=== PATIENT | male | born 1970 | race Caucasian/White ===

== ENCOUNTER 2016-03-30 15:41 | Emergency (ER) | payer BC ==
[2016-03-30 16:34] LABS: Hematocrit 46 % (42-52); Hemoglobin 16.1 g/dl (14.0-18.0); Mean Corpuscular HGB Conc 35 g/dl (31-36); Mean Corpuscular Hemoglobin 31 pg (27-31); Mean Corpuscular Volume 89 fL (80-94); Mean Platelet Volume 8 um3 (7.4-10.4); Red Blood Count 5.17 10^6/ul (4.0-5.4); Red Cell Distribution Width 13 % (10.5-15); White Blood Count 10.4 10^3/ul (3.5-10.8)
[2016-03-30 16:44] LABS: Urine Bacteria Absent (Absent); Urine Bilirubin Negative (Negative); Urine Glucose Negative (Negative); Urine Nitrite Negative (Negative)
[2016-03-30 16:59] LABS: TSH (Thyroid Stimulating Horm) 1.14 mcIU/mL (0.34-5.60)
[2016-03-30 17:01] LABS: ALT 20 U/L (7-52); AST 20 U/L (13-39); Albumin 4.6 g/dL (3.2-5.2); Alkaline Phosphatase 57 U/L (34-104); Anion Gap 7 mmol/L (2-11); BUN/Creatinine Ratio 12.7 (8-20); Blood Urea Nitrogen 10 mg/dL (6-24); CO2 Carbon Dioxide 28 mmol/L (22-32); Calcium 10.3 mg/dL (8.6-10.3); Chloride 100 mmol/L (101-111); EGFR Non-African American 106.6 (>60); Globulin 2.7 g/dL (2-4); Glucose 105 mg/dL (70-100); Sodium 135 mmol/L (133-145); Total Protein 7.3 g/dL (6.4-8.9)
[2016-03-30 17:03] LABS: Acetaminophen < 15 mcg/mL; Alcohol < 10 mg/dL (<10); Salicylate < 2.50 mg/dL (<30)
[2016-03-30 17:06] LABS: Benzodiazepine Urine Screen None Detected (None Detect)
[2016-03-30] MEDS ORDERED: Sertraline* 100 MG TAB PO ONE (20:03)
[2016-03-30 20:15] VITALS: BP 168/74
--- NOTE | 2016-03-30 20:53 | ED ---
Pj Granados Adam, scribed for Alonzo Moody MD on 03/30/16 at 1820 . Psychiatric Complaint - HPI Summary HPI Summary: A 45 y/o male presents to the ED c/o depression lasting several months and getting progressively worse. Per family, patient lost his job 1.5 months ago, has been tearful recently, and has not been taking care of himself lately. He denies difficulty sleeping, hearing voices, or suicidal ideation. Patient admits to not taking prescribed Zoloft for 2 weeks or Adderall for 2 months. He has a PMHx of depression and ADHD, but denies bipolar disorder or schizophrenia. Patient drinks several beers per night, smokes cigarettes, and uses marijuana. FHx is positive for depression. - History Of Current Complaint Chief Complaint: EDMentalHealth Time Seen by Provider: 03/30/16 16:01 Hx Obtained From: Patient, Family/Speech Therapist Onset/Duration: Gradual Onset - Lasting months, Still Present Timing: Constant Severity Initially: Moderate Severity Currently: Moderate Character: Depressed Aggravating Factor(s): Recent Stress - Job loss 1.5 months ago, Medication Non- compliance - Stopped taking Zoloft 2 weeks ago. Stopped taking Adderall 2 months ago. Alleviating Factor(s): Nothing Associated Signs And Symptoms: Negative: Hallucinating, Paranoid Behavior Related History: Positive For: Prior Psychiatric Issues - Hx depression, ADHD Has Suicidal: Denies: Thoughts, With A Plan Has Homicidal: Denies: Thoughts, With A Plan - Allergies/Home Medications Allergies/Adverse Reactions: Allergies Allergy/AdvReac Type Severity Reaction Status Date / Time Penicillins [PCN] Allergy Anaphylatic Verified 03/30/16 15:43 Shock Home Medications: Home Medications Sertraline* [Zoloft*] 100 mg PO BEDTIME 03/30/16 [History Confirmed 03/30/16] PMH/Surg Hx/FS Hx/Imm Hx Endocrine/Hematology History: Denies: Hx Diabetes Psychiatric History: Reports: Hx Attention Deficit Hyperactivity Disorder, Hx Depression Denies: Hx Schizophrenia, Hx Bipolar Disorder Infectious Disease History: No Infectious Disease History: Denies: Traveled Outside the [place] in Last 30 Days - Family History Known Family History: Positive: Other - Depression - Social History Occupation: Unemployed - Lost job mid january 2016 Alcohol Use: Daily Alcohol Amount: Several beers per day Substance Use Type: Reports: Marijuana Hx Tobacco Use: Yes Smoking Status (MU): Heavy Every Day Tobacco Smoker Review of Systems Negative: Fever Positive: Depressed All Other Systems Reviewed And Are Negative: Yes Physical Exam - Summary Physical Exam Summary: The patient is obese in no acute distress and in no acute pain. The skin is warm and dry and skin color reflects adequate perfusion. No lacerations. HEENT: The head is normocephalic and atraumatic. The pupils are equal and reactive. The conjunctivae are clear and without drainage. Nares are patent and without drainage. Mouth reveals moist mucous membranes and the throat is without erythema and exudate. The external ears are intact. The ear canals are patent and without drainage. Neck is supple with full range of motion and non-tender. There are no carotid bruits. There is no neck vein distension. Respiratory: Chest is non-tender. Lungs are clear to auscultation and breath sounds are symmetrical and equal. Cardiovascular: Hear is regular rate and rhythm. There is no murmur or rub auscultated. There is no peripheral edema and pulses are symmetrical and equal. Abdomen: The abdomen is soft and non-tender. There are normal bowel sounds heard in all four quadrants and there is no organomegaly palpated. Musculoskeletal: There is no back pain noted. Extremities are non-tender with full range of motion. There is good capillary refill. There is no peripheral edema or calf tenderness elicited. Neurological: Patient is alert and oriented to person, place and time. The patient has symmetrical motor strength in all four extremities. Cranial nerves are grossly intact. Deep tendon reflexes are symmetrical and equal in all four extremities. Psychiatric: The patient is depressed Vital Signs On Initial Exam: Initial Vitals Temp Pulse Resp BP Pulse Ox 98.0 F 85 16 166/89 100 03/30/16 15:42 03/30/16 15:42 03/30/16 15:42 03/30/16 15:42 03/30/16 15:42 - [place] Coma Scale Coma Scale Total: 15 Diagnostics - Vital Signs Vital Signs Temp Pulse Resp BP Pulse Ox 03/30/16 15:42 98.0 F 85 16 166/89 100 - Laboratory Lab Results: Lab Results 03/30/16 03/30/16 03/30/16 Range/Units 16:07 16:07 16:07 WBC 10.4 (3.5-10.8) 10^3/ul RBC 5.17 (4.0-5.4) 10^6/ul Hgb 16.1 (14.0-18.0) g/dl Hct 46 (42-52) % MCV 89 (80-94) fL MCH 31 (27-31) pg MCHC 35 (31-36) g/dl RDW 13 (10.5-15) % Plt Count 181 (150-450) 10^3/ul MPV 8 (7.4-10.4) um3 Neut % (Auto) 79.2 (38-83) % Lymph % (Auto) 12.7 L (25-47) % [place] % (Auto) 7.3 (1-9) % Eos % (Auto) 0.3 (0-6) % Baso % (Auto) 0.5 (0-2) % Absolute Neuts (auto) 8.2 H (1.5-7.7) 10^3/ul Absolute Lymphs (auto) 1.3 (1.0-4.8) 10^3/ul Absolute Monos (auto) 0.8 (0-0.8) 10^3/ul Absolute Eos (auto) 0 (0-0.6) 10^3/ul Absolute Basos (auto) 0.1 (0-0.2) 10^3/ul Absolute Nucleated RBC 0 10^3/ul Nucleated RBC % 0 Sodium 135 (133-145) mmol/L Potassium 4.0 (3.5-5.0) mmol/L Chloride 100 L (101-111) mmol/L Carbon Dioxide 28 (22-32) mmol/L Anion Gap 7 (2-11) mmol/L BUN 10 (6-24) mg/dL Creatinine 0.79 (0.67-1.17) mg/dL Est GFR ( Amer) 137.0 (>60) Est GFR (Non-Af Amer) 106.6 (>60) BUN/Creatinine Ratio 12.7 (8-20) Glucose 105 H (70-100) mg/dL Calcium 10.3 (8.6-10.3) mg/dL Total Bilirubin 1.00 (0.2-1.0) mg/dL AST 20 (13-39) U/L ALT 20 (7-52) U/L Alkaline Phosphatase 57 (34-104) U/L Total Protein 7.3 (6.4-8.9) g/dL Albumin 4.6 (3.2-5.2) g/dL Globulin 2.7 (2-4) g/dL Albumin/Globulin Ratio 1.7 (1-3) TSH 1.14 (0.34-5.60) mcIU/mL Urine Color Yellow Urine Appearance Clear Urine pH 5.0 (5-9) Ur Specific [place] 1.017 (1.010-1.030) Urine Protein 2+(100 mg/dl) H (Negative) Urine Ketones Negative (Negative) Urine Blood Negative (Negative) Urine Nitrate Negative (Negative) Urine Bilirubin Negative (Negative) Urine Urobilinogen Negative (Negative) Ur Leukocyte Esterase Negative (Negative) Urine WBC (Auto) Absent (Absent) Urine RBC (Auto) Trace(0-2/hpf) (Absent) Ur Squamous Epith Cells Present H (Absent) Urine Bacteria Absent (Absent) Urine Glucose Negative (Negative) Salicylates < 2.50 (<30) mg/dL Urine Opiates Screen (None Detect) Acetaminophen < 15 mcg/mL Ur Barbiturates Screen (None Detect) Ur Phencyclidine Scrn (None Detect) Ur Amphetamines Screen (None Detect) U Benzodiazepines Scrn (None Detect) Urine Cocaine Screen (None Detect) U Cannabinoids Screen (None Detect) Serum Alcohol < 10 (<10) mg/dL 03/30/16 Range/Units 16:07 WBC (3.5-10.8) 10^3/ul RBC (4.0-5.4) 10^6/ul Hgb (14.0-18.0) g/dl Hct (42-52) % MCV (80-94) fL MCH (27-31) pg MCHC (31-36) g/dl RDW (10.5-15) % Plt Count (150-450) 10^3/ul MPV (7.4-10.4) um3 Neut % (Auto) (38-83) % Lymph % (Auto) (25-47) % [place] % (Auto) (1-9) % Eos % (Auto) (0-6) % Baso % (Auto) (0-2) % Absolute Neuts (auto) (1.5-7.7) 10^3/ul Absolute Lymphs (auto) (1.0-4.8) 10^3/ul Absolute Monos (auto) (0-0.8) 10^3/ul Absolute Eos (auto) (0-0.6) 10^3/ul Absolute Basos (auto) (0-0.2) 10^3/ul Absolute Nucleated RBC 10^3/ul Nucleated RBC % Sodium (133-145) mmol/L Potassium (3.5-5.0) mmol/L Chloride (101-111) mmol/L Carbon Dioxide (22-32) mmol/L Anion Gap (2-11) mmol/L BUN (6-24) mg/dL Creatinine (0.67-1.17) mg/dL Est GFR ( Amer) (>60) Est GFR (Non-Af Amer) (>60) BUN/Creatinine Ratio (8-20) Glucose (70-100) mg/dL Calcium (8.6-10.3) mg/dL Total Bilirubin (0.2-1.0) mg/dL AST (13-39) U/L ALT (7-52) U/L Alkaline Phosphatase (34-104) U/L Total Protein (6.4-8.9) g/dL Albumin (3.2-5.2) g/dL Globulin (2-4) g/dL Albumin/Globulin Ratio (1-3) TSH (0.34-5.60) mcIU/mL Urine Color Urine Appearance Urine pH (5-9) Ur Specific [place] (1.010-1.030) Urine Protein (Negative) Urine Ketones (Negative) Urine Blood (Negative) Urine Nitrate (Negative) Urine Bilirubin (Negative) Urine Urobilinogen (Negative) Ur Leukocyte Esterase (Negative) Urine WBC (Auto) (Absent) Urine RBC (Auto) (Absent) Ur Squamous Epith Cells (Absent) Urine Bacteria (Absent) Urine Glucose (Negative) Salicylates (<30) mg/dL Urine Opiates Screen None detected (None Detect) Acetaminophen mcg/mL Ur Barbiturates Screen None detected (None Detect) Ur Phencyclidine Scrn None detected (None Detect) Ur Amphetamines Screen None detected (None Detect) U Benzodiazepines Scrn None detected (None Detect) Urine Cocaine Screen None detected (None Detect) U Cannabinoids Screen Presumptive positive H (None Detect) Serum Alcohol (<10) mg/dL Result Diagrams: 03/30/16 16:07 03/30/16 16:07 Lab Statement: Any lab studies that have been ordered have been reviewed, and results considered in the medical decision making process. Course/Dx - Course Assessment/Plan: Patient medically clear for MHE at 17:35. Charge nurse notified. - Differential Dx/Clinical Impression Differential Diagnosis/HQI/PQRI: Positive: Anxiety, Depression, Other - substance abuse Provider Diagnosis: Depression, Substance abuse non-compliance Discharge - Discharge Plan Condition: Stable Disposition: HOME Discharge Disposition Comment: Pt admitted her MHE Prescriptions: Sertraline* [Zoloft*] 100 mg PO BEDTIME #7 tab Patient Education Materials: Depression (ED) Referrals: Almas Putnam MD [Primary Care Provider] - Additional Instructions: Per completion of a mental health evaluation, you are cleared for release and do not require inpatient psychiatric hospitalization at this time. Please go to nearest emergency room or call 911 if safety concerns arise or condition worsens. Follow up with contacting Dr. Putnam [phone] tomorrow and on Saturday contact [facility] [phone] and [facility] [phone]. Important Phone Numbers: [facility]~~ ph:[phone] Suicide Prevention and Crisis Services~~~~~~~~~~~~~~~~~~~~~~~ ph:[phone] National Suicide Prevention Lifeline~~~~~~~~~~~~~~~~~~~~~~~ ~~ ph:[phone]- LVPQ (7220) [facility]~~~~~~~~~~~~~~~~~~ ~~ ph:[phone] Alcoholics Anonymous~~~~~~~~~~~~~~~~~~~~~~~~~~~~~~~~~~~~~~~~~~~~~~~~~ ph:[phone] [facility]~~~~~~ ~~ ph:[phone] [place] [employer] ph:[phone] The documentation as recorded by the Pj tompkins,Campos accurately reflects the service I personally performed and the decisions made by me, Alonzo Moody MD.
== END 2016-03-30 20:15 | disposition home or self-care (01) ==
LOC: ED 15:41
DX: F32.9 Major depressive disorder, single episode, unspecified (principal); F19.10 Other psychoactive substance abuse, uncomplicated; F17.210 Nicotine dependence, cigarettes, uncomplicated
CPT/HCPCS: 36415; 80053; 80307; 80320; 80329; 81003; 81015; 84443; 85025; 96374; 99282; A9270-GY; G0480